=== PATIENT | male | born 1965 | race Caucasian/White ===

== ENCOUNTER 2019-11-23 16:20 | Emergency (ER) | payer OTHER, SELFPAY ==
[2019-11-23 16:40] VITALS: BP 113/64; PULSE 69; RESP 16; TEMP 36.7; O2SAT 100
[2019-11-23 16:47] VITALS: BP 136/69; PULSE 16; RESP 16; TEMP 37.1; O2SAT 100
--- NOTE | 2019-11-23 16:52 | ED.UPPEXIN ---
HPI - Extremity Injury (Upper) General Chief Complaint: Extremity Injury, Upper Stated Complaint: bicep injury Time Seen by Provider: 11/23/19 16:52 Source: patient Mode of arrival: ambulatory Limitations: no limitations History of Present Illness HPI narrative: Brodie Díaz is a 54 yo male with no PMH who comes to express care with R arm injury that occurred POA. 5 lawnmower and felt a tearing sensation in his right arm. Having difficulty with lateral movement, rates pain as 1/10 but can't move arm in certain directions Related Data Allergies Allergy/AdvReac Type Severity Reaction Status Date / Time No Known Allergies Allergy Unverified 11/23/19 16:46 Review of Systems Review of Systems: Narrative: ` CONSTITUTIONAL: Denies fever, chills, sweats. EYES: Denies visual changes, redness, discharge. ENT: Denies rhinorrhea, congestion, sore throat, otalgia. CARDIOVASCULAR: Denies chest pain, palpitations, edema. RESPIRATORY: Denies dyspnea, wheezing, cough GASTROINTESTINAL: Denies abdominal pain, nausea, vomiting, diarrhea. GENITOURINARY: Denies dysuria, hematuria, abnormal discharge SKIN: Denies rash or itching. NEUROLOGIC: Denies numbness, or focal weakness. PSYCHIATRIC: Denies anxiety or depression. Right arm injury [facility] Family History Family History Other No acute medical problems Social History Social History (Updated 11/23/19 @ 16:55 by Lois Burns CNP) Smoking status: Never smoker Alcohol intake: current Comments At time of signature, I agree with nursing past medical, surgical, social and family history. There is no relevant family history pertinent to the presenting complaint. Exam Narrative: Exam Narrative: GENERAL: This is a well-nourished, well-developed patient, in mild distress. HEAD: normocephalic, atraumatic. EYES: Sclera clear/white. Vision is grossly intact. EARS: External ears normal, Hearing grossly intact. NOSE: External nose normal without nasal discharge, nares without redness, no rhinorrhea. THROAT: Mucous membranes moist, NECK: Neck supple, CARDIOVASCULAR: Regular rate and rhythm without murmurs, gallops, or rubs. RESPIRATORY: Clear to auscultation. Breath sounds equal bilaterally. No wheezes, rales, or rhonchi. GASTROINTESTINAL: Abdomen soft, SKIN: warm, intact with no suspicious lesions or rash, good texture and turgor. NEURO: awake, alert, and oriented to person, place and time. There were no obvious focal neurologic abnormalities. 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 BACK: Nontender without deformity Course Course Emergency Course: Pt's exam indicates a possible biceps tear on R- pt placed in sling and given pain meds/NSAIDS- to follow up with orthopedeist Pt verbalizes understanding - chooses to try and work but will give release in case unable to do so Vital Signs Vital signs: Vital Signs Temperature 98.0 F 11/23/19 16:40 Pulse Rate 69 11/23/19 16:40 Respiratory Rate 16 11/23/19 16:40 Blood Pressure 113/64 11/23/19 16:40 Pulse Oximetry 100 11/23/19 16:40 Temperature 98.7 F 11/23/19 16:47 Pulse Rate 16 L 11/23/19 16:47 Respiratory Rate 16 11/23/19 16:47 Blood Pressure 136/69 11/23/19 16:47 Pulse Oximetry 100 11/23/19 16:47 MDM - Extremity Injury (Upper) Differential Diagnosis Differential diagnosis: Likely dislocation of shoulder, fracture of humerus and other (biceps tear) Discharge Plan Discharge Clinical Impression: Injury of tendon of biceps Patient Disposition: Home, Self-Care Condition: Stable Instructions: Repairs of the Biceps and Triceps Tendons (DC), Tendon Rupture (ED) Additional Instructions: Elevate arm with sleeping, use ibuprofen to help decrease swelling and [place] for actual pain. Can use ice to help control swelling and pain. Follow-up wit
== END 2019-11-23 17:16 | disposition home or self-care (01) ==
PROVIDERS: Emergency Provider Nurse Practitioner; PCP Family Medicine Adolescent Medicine
DX: S49.91XA Unspecified injury of right shoulder and upper arm, initial encounter (principal); X58.XXXA Exposure to other specified factors, initial encounter
CPT/HCPCS: 99213; A4565; G0463

== ENCOUNTER 2019-11-28 00:34 | Outpatient (CLI) | payer OTHER, SELFPAY ==
[2019-11-28 19:16] LABS: SARS-CoV-2 RNA PCR Negative
== END 2019-11-28 00:35 | disposition home or self-care (01) ==
PROVIDERS: PCP Family Medicine Adolescent Medicine; Visit Provider Orthopaedic Surgery
DX: Z01.812 Encounter for preprocedural laboratory examination (principal); Z11.59 Encounter for screening for other viral diseases; S46.219D Strain of muscle, fascia and tendon of other parts of biceps, unspecified arm, subsequent encounter; X58.XXXD Exposure to other specified factors, subsequent encounter
CPT/HCPCS: 87635; C9803; U0003

== ENCOUNTER 2019-11-28 08:29 | Outpatient (CLI) | payer OTHER, SELFPAY ==
--- NOTE | ~2019-11-28 | MR_ITS ---
EXAMINATION: MR elbow RT wo con DATE: 11/28/2019 10:38 INDICATION: Right elbow pain. TECHNIQUE: Magnetic resonance imaging (MRI) of the right elbow was performed without intravenous cont rast. Sequences included coronal, axial, and sagittal PD-weighted FS FSE and coronal, axial, and sagi ttal PD-weighted FSE. COMPARISON: Right elbow radiographs 11/27/2019 FINDINGS: Osseous/other: Bone alignment is normal. No fracture. 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 Tendons: There is a complete tear of biceps tendon at its attachment on the proximal radius with 7 cm retracti on. There is a small volume of hematoma along the biceps tendon at its expected course. The brachiali s tendon and triceps tendon are normal. There is moderate common extensor tendinopathy. There is a pa rtial tear of the common flexor tendon at the medial humeral epicondyle. Ligaments: Radial collateral ligament, lateral ulnar collateral ligament, and ulnar collateral ligament are inta ct. Cubital tunnel: The ulnar nerve is normal. Fluid: There is no elbow joint effusion. IMPRESSION: 1. Complete tear of biceps tendon from the radial tuberosity with 7 cm retraction. 2. Partial tear of the common flexor tendon at the medial humeral epicondyle. Reviewed, dictated and finalized at location A. IMPRESSION: 1. Complete tear of biceps tendon from the radial tuberosity with 7 cm retracti on. 2. Partial tear of the common flexor tendon at the medial humeral epicondyle.
== END 2019-11-28 08:30 | disposition home or self-care (01) ==
PROVIDERS: PCP Family Medicine Adolescent Medicine; Visit Provider Orthopaedic Surgery
DX: S46.211A Strain of muscle, fascia and tendon of other parts of biceps, right arm, initial encounter (principal); X58.XXXA Exposure to other specified factors, initial encounter
CPT/HCPCS: 73221

== ENCOUNTER 2019-11-30 02:14 | Day surgery (SDC) | payer OTHER, SELFPAY ==
[2019-11-27 16:12] VITALS: BMI 30.1
[2019-11-30] VITALS (12 sets, daily range): BP systolic 123–152; BP diastolic 61–86; PULSE 50–90; RESP 11–22; TEMP 36.2–36.6; O2SAT 97–100
--- NOTE | 2019-11-30 08:21 | WPDANESEPPF ---
Anes - Initial Pre Proc Eval Procedure: Operation Date: 11/30/19 10:00 Proposed Procedures p Right Distal Biceps Tendon Repair - John Corado MD Date/Time: 11/30/19 08:21 Surgeon: John Corado MD Pre Op Diagnosis: Right bicep tendon rupture Patient Data Age: 54 Gender: M Height: 5 ft 10 in Weight: 95.25 kg Allergies Allergy/AdvReac Type Severity Reaction Status Date / Time No Known Allergies Allergy Unverified 11/27/19 16:11 Home Medications Medication Instructions Recorded Confirmed Type ibuprofen 600 mg PO Q6H PRN #30 tablet 11/23/19 11/27/19 Rx Patient hx anesthesia problems: none Family hx anesthesia problems: none PMFSH Surgical History Surgical History Traumatic rupture of right distal biceps tendon Family History Family History Other No acute medical problems Social History Social History Smoking status: Never smoker Alcohol intake: current Drinks per week: 2 Spiritual care concerns: No Anes - Eval Final PreProcedure Day of Procedure 11/30/19 08:21 Patient weight: obese Heart: regular rate and rhythm Lungs: clear to auscultation Airway: Mallampati scale class II Neurological: alert and oriented Last oral intake: >/= 8 hours ASA classification: III Emergent: no Anesthetic plan: proceed Anesthesia type and monitoring: general ETT and standard monitoring Informed Consent: The patient's anesthetic plan and its attendant risks and benefits were discussed with the patient/family/POA. Questions were solicited and answers provided to the satisfaction of the patient/family/POA.
[2019-11-30] MEDS: ACETAMINOPHEN 500 MG TABLET 1000 MG PO (08:35)
[2019-11-30] MEDS: LACTATED RINGERS 1,000 ML 30 ML IV CONT ×2 (08:40→12:03)
[2019-11-30] MEDS: KETOROLAC 15 MG/ML VIAL (*BKC) IV PUSH (08:45)
--- NOTE | 2019-11-30 09:58 | WPDHPUPDATE1 ---
History and Physical Update Update Date/Time: 11/30/19 09:58 History and Physical has been reviewed, including an updated exam of the patient. There are NO changes in the patient's condition. Risks, benefits, and alternatives have been discussed and questions answered. Patient agrees to proceed with procedure.
[2019-11-30] MEDS: ceFAZolin 2 GM/D5W 50 ML 2 GM/50 ML BAG IVPB (10:11)
--- NOTE | 2019-11-30 11:50 | P.OP_ITS ---
Procedure Note - Detailed Date of procedure: 11/30/19 Pre-op diagnosis: Right bicep tendon rupture Post-op diagnosis: same Procedure performed: Distal biceps tendon repair Implants: Ar[employer]rex biotenodesis screw 7mm, and endobutton. Anesthesia: GLMA Surgeon: John Corado MD Estimated blood loss (mL): 10 Drains: No Complications: No immediate complications Condition: stable Disposition: PACU Findings: Preoperative antibiotics were given. A general anesthetic was administered. The arm was prepped and draped in the usual sterile fashion with a well-padded tourniquet high on the arm. The tourniquet was used during the final fixation portion of the procedure. A transverse incision was created 3 centimeters distal to the elbow flexion crease. Careful blunt dissection was used to dissect the interval between the pronator and muscles and the brachioradialis. Careful dissection was brought down to the deep veins which were ligated as necessary. The recurrent radial artery was ligated. The zone of injury was identified. The forearm was carefully supinated to protect the radial nerve and its branches. The distal biceps tendon was identified in the proximal portion of the wound using digital manipulation. A whipstitch was placed in the tendon after carefully debriding the damaged end. The tendon was confirmed to be passable through the 8 millimeter guide. At this point the radia l tuberosity was clearly identified and exposed. Care was taken to maintain supination and limit lateral retraction. The guide pin was drilled through both cortices. The proximal cortex was over reamed to 8 millimeters. The Endobutton was inserted through the distal cortex and deployed. The graft was seated into the radius very nicely. The interference screw was placed with excellent purchase. The screw was 7 millimeters in diameter. A biocomposite screw was used. Additional fixation was obtained by suturing the free limb to the tendon and tying it through the other suture limb which was brought up through the center cannula of the screw. The repair was quite arboleda. Copious antibiotic irrigation was used throughout the procedure to remove any loose bone fragments. The tourniquet was used only during the final visualization of tendon insertion. The tourniquet was released and meticulous hemostasis was confirmed. The wound was closed with interrupted 3-0 Monocryl suture followed by a running 4-0 Monocryl suture and Steri-Strips. Sterile light dressing was applied with a sling. The patient was brought to the recovery room in stable condition. There were no complications
[2019-11-30] MEDS: ONDANSETRON INJ 4 MG/2 ML VIAL IV PUSH (13:14)
[2019-11-30] MEDS: SCOPOLAMINE 1.5 MG PATCH TRANSDERM (13:54)
[2019-11-30] MEDS: diphenhydrAMINE HCl INJ 50 MG/ML VIAL 12.5 MG IV PUSH ×2 (13:55→14:17)
== END 2019-11-30 15:52 | disposition home or self-care (01) ==
PROVIDERS: PCP Family Medicine Adolescent Medicine; Visit Provider Orthopaedic Surgery
PROC: (CPT 24341; principal; 2019-11-30 10:00)
DX: S46.211A Strain of muscle, fascia and tendon of other parts of biceps, right arm, initial encounter (principal); X50.0XXA Overexertion from strenuous movement or load, initial encounter; E66.9 Obesity, unspecified; Z68.31 Body mass index [BMI] 31.0-31.9, adult
CPT/HCPCS: 24342; 73221; 87635; A9270; C9803; J0690; J1100; J1200; J1885; J2250; J2405; J2704; J3010; J7120; U0003